=== PATIENT | male | born 1975 | race Two or more races ===

== ENCOUNTER 2022-10-11 06:24 | Inpatient (IN) | payer MEDICAID ==
[~2022-10-11] VITALS: Ht 177.8 cm; Wt 99.8 kg
[2022-10-11] MEDS ORDERED: ONDANSETRON 4 MG/2 ML VIAL IV ONE (06:45)
[2022-10-11] MEDS ORDERED: MORPHINE SULFATE 4 MG/1 ML DISP.SYRIN IV ONE ×2 (06:45→09:45)
[2022-10-11 07:08] LABS: HEMATOCRIT 46.6 % (36.7-47.1); MEAN CORPUSCULAR VOLUME 80.7 fL (73.0-96.2); PLATELET COUNT (AUTO) 297 K/uL (152-348)
[2022-10-11] MEDS ORDERED: ONDANSETRON 4 MG/2 ML VIAL ONE ×2 (07:08→07:17)
[2022-10-11] MEDS ORDERED: MORPHINE SULFATE 4 MG/1 ML DISP.SYRIN ONE ×2 (07:08→09:42)
[2022-10-11] MEDS ORDERED: ACETAMINOPHEN 325 MG TABLET PO ONE (07:15)
[2022-10-11 07:23] LABS: BILIRUBIN,TOTAL 1.9 mg/dL (0.2-1.0); CREATININE 0.8 mg/dL (0.6-1.3); POTASSIUM 4.8 mmol/L (3.5-5.1); TOTAL PROTEIN, SERUM 7.8 g/dL (6.4-8.2)
--- NOTE | 2022-10-11 07:24 | NUR ---
RECEIVED PATIENT, COMPLAINING OF NAUSEA AND ABD PAIN, ZOPHAN 4 MG IV GIVEN AND MORPHINE WAS REFUSED, MD MADE AWARE.
--- NOTE | 2022-10-11 07:45 | NUR ---
Received report from retail shift supervisor. Pt is in room 2A, A/O x 3. Per report lab specimens have already been drawn, pending CT.
[2022-10-11] MEDS ORDERED: IOHEXOL 300MG/ML 100 ML INFUS..BTL ONE (07:56)
[2022-10-11] MEDS ORDERED: SWABABLE VALVE TRANSFER SET EA MC ONE (07:56)
[2022-10-11] MEDS ORDERED: IV NORMAL SALINE 250 ML IV ONE (07:56)
[2022-10-11] MEDS ORDERED: ACETAMINOPHEN ES 500 MG TABLET ONE (08:24)
--- NOTE | 2022-10-11 09:07 | NUR ---
Telephone call placed to Dr.Samuel Rios (surg on-call) as requested by , left urgent message for call back.
[2022-10-11] MEDS ORDERED: CEFTRIAXONE 1 G in IV DEXTROSE 5% 50 ML IV ONE (09:15)
[2022-10-11] MEDS ORDERED: METRONIDAZOLE 500 MG/NS 100 ML PIGGYBACK IV ONE (09:15)
[2022-10-11] MEDS ORDERED: METRONIDAZOLE 500 MG/NS 100ML 100 ML IV ONE (09:22)
[2022-10-11] MEDS ORDERED: CEFTRIAXONE /D5W 50ML IVPB **ER PYXIS IV ONE (09:22)
--- NOTE | 2022-10-11 09:40 | NUR ---
Mary Castorena in to see pt. Plan of care was discussed with patient by Mary Castorena,[employer] and ER physician, pt verbalized understanding.
[2022-10-11] MEDS ORDERED: HYDROMORPHONE 1 MG/1 ML DISP.SYRIN IV PRN (10:15)
[2022-10-11] MEDS ORDERED: ACETAMINOPHEN 325 MG TABLET PO PRN (10:15)
[2022-10-11] MEDS ORDERED: IV NS 1000 ML 1,000 ML IV PRN (10:15)
[2022-10-11] MEDS ORDERED: REMEDY ESSENTIAL ZINC PASTE 113 GM TP PRN (10:15)
[2022-10-11] MEDS ORDERED: ONDANSETRON 4 MG/2 ML VIAL IV PRN ×2 (10:15→16:45)
[2022-10-11] MEDS ORDERED: MAGNESIUM HYDROXIDE 30 ML LIQUID UDC PO PRN (10:15)
[2022-10-11] MEDS ORDERED: PIPERACILLIN SODIUM/TAZOBACTAM 3.375 G in IV DEXTROSE 5% 50 ML IV SCH (12:00)
[2022-10-11] MEDS ORDERED: PIPERACILLIN/TAZOBACTAM/D5W 50 ML IV ONE (12:12)
--- NOTE | 2022-10-11 12:15 | NUR ---
Pt signed consent for surgery (as requested by OR nurse via telephone). Pt states his pain is "okay" as this time and he will let me know if he needs prn pain medication.
[2022-10-11] MEDS ORDERED: HYDROMORPHONE 1 MG/1 ML DISP.SYRIN ONE (13:16)
--- NOTE | 2022-10-11 13:20 | NUR ---
Pt medicated for pain (states 9/10 at this time) with Dilaudid 1mg IV as per prn order.
--- NOTE | 2022-10-11 14:15 | NUR ---
Pt blood glucose called in as a critical 48. Pt alert and oriented Gave 3 orange juices and ruben crackers. No distress noted. Informed
[2022-10-11] MEDS ORDERED: LIDOCAINE HCL 1% 20 ML VIAL ONE (14:33)
[2022-10-11] MEDS ORDERED: BUPIVACAINE/EPI PF 0.25% 10 ML VIAL IJ ONE (14:33)
[2022-10-11] MEDS ORDERED: FENTANYL CITRATE 100 MCG/2 ML AMPUL ONE (15:34)
[2022-10-11] MEDS ORDERED: ROCURONIUM BROMIDE 50 MG/5 ML VIAL ONE (15:34)
--- NOTE | 2022-10-11 15:50 | NUR ---
Pt taken to OR by surgery staff. SBAR report given to surgery staff and Lizzy on m/s floor. Pt to go to room 319 post surg.
[2022-10-11] MEDS ORDERED: HYDROCODONE/APAP 5-325MG TABLET PO PRN (16:45)
[2022-10-11] MEDS ORDERED: ACETAMINOPHEN ES 500 MG TABLET PO PRN (16:45)
[2022-10-11] MEDS ORDERED: MORPHINE SULFATE 2 MG/1 ML DISP.SYRIN IV PRN (16:45)
--- NOTE | 2022-10-11 18:38 | NUR ---
pt received from recovery room via bed in stable condition.pt is axox4.call light with in reach vs are stable
[2022-10-11 18:45] VITALS: BP 113/70
[2022-10-11] MEDS: GABAPENTIN 100 MG CAPSULE PO SCH (18:46)
[2022-10-11 20:00] VITALS: BP 134/91
--- NOTE | 2022-10-11 20:00 | NUR ---
RECEIVED PATIENT AWAKE IN BED. A/O X4. ASSISTED OOB TO BATHROOM. STEADY. VSS. H/L INTACT AND PATENT, NOTED TO LEFT HAND #20 GAUGE WITH IVF INFUSING. O2 2L NC SATING WELL. PATIENT GIVEN INCENTIVE SPIROMETER AND EDUCATION GIVEN. CALL LIGHT IN REACH. ALL NEEDS ATTENDED, WILL CONTINUE TO MONITOR AND ASSESS.
[2022-10-11] MEDS: PIPERACILLIN SODIUM/TAZOBACTAM 3.375 G in IV DEXTROSE 5% 100 ML IV SCH (21:14)
[2022-10-12 04:00] VITALS: BP 121/79
[2022-10-12] MEDS: PIPERACILLIN SODIUM/TAZOBACTAM 3.375 G in IV DEXTROSE 5% 100 ML IV SCH ×2 (04:35→11:50)
--- NOTE | 2022-10-12 06:16 | NUR ---
PATIENT GIVEN NORCO 5/325MG X1 PRN FOR PAIN.
--- NOTE | 2022-10-12 07:10 | NUR ---
pt received in bed sleeping no c/o pain noted .call light with in reach ,iv fluids continue
[2022-10-12 07:47] LABS: HEMATOCRIT 46.8 % (36.7-47.1); MEAN CORPUSCULAR HEMOGLOBIN 25.8 uug (23.8-33.4); MEAN CORPUSCULAR VOLUME 81.4 fL (73.0-96.2); PLATELET COUNT (AUTO) 308 K/uL (152-348)
[2022-10-12] MEDS: GABAPENTIN 100 MG CAPSULE PO SCH ×2 (08:00→12:21)
[2022-10-12 08:10] LABS: CREATININE 0.9 mg/dL (0.6-1.3); MAGNESIUM 2.3 mg/dL (1.8-2.4); PHOSPHOROUS 4.8 mg/dL (2.5-4.9); POTASSIUM 4.2 mmol/L (3.5-5.1)
[2022-10-12 12:06] VITALS: BP 131/76
[2022-10-12] MEDS ORDERED: AMOX-430 PO (14:50)
[2022-10-12] MEDS ORDERED: DOCU-141 PO (14:50)
[2022-10-12] MEDS ORDERED: HYDR-3972 PO (14:50)
[2022-10-12] MEDS ORDERED: ACET-73 PO (14:50)
[2022-10-12] MEDS ORDERED: CEFAZOLIN 1 G VIAL IM ONE (15:04)
[2022-10-12] MEDS ORDERED: LIDOCAINE-MPF 2% 5 ML VIAL IJ ONE (15:04)
[2022-10-12] MEDS ORDERED: SUCCINYLCHOLINE CHLORIDE 200 MG/10 ML VIAL IV ONE (15:04)
[2022-10-12] MEDS ORDERED: NEOSTIGMINE METHYLSULFATE 10 MG/10 ML VIAL IM ONE (15:04)
[2022-10-12] MEDS ORDERED: ONDANSETRON 4 MG/2 ML VIAL IV ONE (15:04)
[2022-10-12] MEDS ORDERED: PROPOFOL 200 MG/20 ML BOTTLE IV ONE (15:04)
[2022-10-12] MEDS ORDERED: KETOROLAC TROMETHAMINE 30 MG INJ IM ONE (15:04)
[2022-10-12] MEDS ORDERED: SEVOFLURANE 250 ML BOTTLE IH ONE (15:04)
[2022-10-12] MEDS ORDERED: DEXAMETHASONE SOD PHOSPHATE 4 MG INJ IV ONE (15:04)
[2022-10-12] MEDS ORDERED: GLYCOPYRROLATE 0.2 MG/ML VIAL IJ ONE (15:04)
--- NOTE | 2022-10-12 15:07 | NUR ---
DC ORDERS RECEIVED NOTED AND CARRIED OUT,DC INSTRUCTION GIVEN TO THE PT .PT SAID HE WILL FOLLOW UP WITH DR KRAMER IN TWO WEEKS PT LEFT THE FACILITY VIA PRIVATE CAR IN STABLE CONDITION
== END 2022-10-12 15:05 | disposition home or self-care (01) | DRG 233 ==
LOC: ER 06:24 → MEDSURG3 15:07
PROVIDERS: ADMIT Nurse Practitioner Acute Care; ATTEND Nurse Practitioner Acute Care
PROC: 0DTJ4ZZ Resection of Appendix, Percutaneous Endoscopic Approach (ICD-10-PCS; principal; 2022-10-11)
DX: K35.32 Acute appendicitis with perforation, localized peritonitis, and gangrene, without abscess (principal); E87.1 Hypo-osmolality and hyponatremia; E66.9 Obesity, unspecified; Z68.31 Body mass index [BMI] 31.0-31.9, adult; K44.9 Diaphragmatic hernia without obstruction or gangrene; K40.20 Bilateral inguinal hernia, without obstruction or gangrene, not specified as recurrent; D72.829 Elevated white blood cell count, unspecified; R74.01 Elevation of levels of liver transaminase levels; J45.909 Unspecified asthma, uncomplicated; Z20.822 Contact with and (suspected) exposure to COVID-19
CPT/HCPCS: 36415; 83690; 83735; 84100; 85025; A4663; A9150; G0378; J0330; J0690; J0696; J1100; J1170; J1885; J2270; J2405; J2543; J3010; J3490; J7040; Q9967